=== PATIENT | male | born 1995 | race Caucasian/White ===

== ENCOUNTER 2019-03-18 19:56 | Emergency (ER) | payer BC ==
[~2019-03-18] VITALS: Ht 182.9 cm; Wt 93.4 kg
--- NOTE | 2019-03-18 20:19 | NUR ---
PT TAKEN BACK TO LOBBY
[2019-03-18 20:20] VITALS: BP 116/74
[2019-03-18] MEDS ORDERED: DEXAMETHASONE 10 MG/ML VIAL PO ONE (21:00)
--- NOTE | 2019-03-18 21:10 | NUR ---
23 Y/O MALE C/O FLU LIKE SX X 5 DAYS. LUNG SOUNDS CLEAR ALL THROUGHOUT. NO RESP DISTRESS NOTED. NO SOB. A & O X4. PRODUCTIVE COUGH PRESENT. RUNNY NOSE. TOOK TYLENOL AT 1400 AND COLD SX MED AT 1100 TODAY. VSS. NO N,V,D. NKA. NO PMH.
[2019-03-18 21:18] VITALS: BP 116/74
--- NOTE | 2019-03-18 21:18 | NUR ---
Patient discharged with v/s stable. Written and verbal after care instructions given and explained. Patient alert, oriented and verbalized understanding of instructions. Ambulatory with steady gait. All questions addressed prior to discharge. ID band removed. Patient advised to follow up with PMD. Rx of ALBUTEROL,PREDNISONE,IBUPROFEN given. Patient educated on indication of medication including possible reaction and side effects. Opportunity to ask questions provided and answered.
== END 2019-03-18 21:18 | disposition home or self-care (01) ==
LOC: MED 19:56
DX: J06.9 Acute upper respiratory infection, unspecified (principal)
CPT/HCPCS: 71045; 99283; J1100

== ENCOUNTER 2021-05-03 19:03 | Emergency (ER) | payer BC ==
[~2021-05-03] VITALS: Ht 182.9 cm; Wt 98.0 kg
[2021-05-03 19:07] VITALS: BP 146/74
--- NOTE | 2021-05-03 19:20 | NUR ---
DR GARNICA AT BEDSIDE
--- NOTE | 2021-05-03 19:25 | NUR ---
25 Y/O MALE C/O LEFT ARM NUMBNESS X1DAY. DENIES N/V. DENIES FEVER/CHILLS. PT STATES "SOMETIMES MY HAND GOES COLD" DENIES PMH NKA
[2021-05-03] MEDS ORDERED: diazePAM 5 MG TAB PO ONE (19:35)
[2021-05-03 19:54] LABS: BASOPHILS % (AUTO) 0.6 % (0.0-2.0); EOSINOPHILS # (AUTO) 0.5 K/uL (0-0.4); EOSINOPHILS % (AUTO) 8.1 % (0.0-4.0); HEMATOCRIT 43.4 % (36-52); HEMOGLOBIN 15.1 g/dL (12.0-18.0); LYMPHOCYTES # (AUTO) 1.7 K/uL (2.0-11.5); LYMPHOCYTES % (AUTO) 27.6 % (20.5-51.1); MEAN CORPUSCULAR HEMOGLOBIN 29 pg (27-31); MEAN CORPUSCULAR HGB CONC 35 g/dL (33-37); MEAN CORPUSCULAR VOLUME 83.9 fL (80-94); MONOCYTES # (AUTO) 0.4 K/uL (0.8-1.0); MONOCYTES % (AUTO) 7.1 % (1.7-9.3); NEUTROPHILS # (AUTO) 3.4 K/uL (1.8-7.7); NEUTROPHILS % (AUTO) 56.6 % (42.2-75.2); PLATELET COUNT (AUTO) 227 K/uL (140-450); RED BLOOD CELL COUNT(AUTO) 5.18 MIL/uL (4.20-6.10); RED CELL DISTRIBUTION WIDTH 13.4 % (11.6-13.7)
[2021-05-03 20:11] LABS: ANION GAP 13.6 (8-16); CARBON DIOXIDE 28.9 mmol/L (21-32); CREATININE 0.9 mg/dL (0.6-1.3); POTASSIUM 3.5 mmol/L (3.5-5.1)
[2021-05-03] MEDS ORDERED: DIAZ5TAB8 PO (20:34)
--- NOTE | 2021-05-03 20:42 | NUR ---
DR GARNICA AT BEDSIDE FOR RE-EXAM
[2021-05-03 20:45] VITALS: BP 146/74
--- NOTE | 2021-05-03 20:45 | NUR ---
Patient discharged with v/s stable. Written and verbal after care instructions given and explained. Patient alert, oriented and verbalized understanding of instructions. Ambulatory with steady gait. All questions addressed prior to discharge. ID band removed. Patient advised to follow up with PMD. Rx of VALIUM given. Patient educated on indication of medication including possible reaction and side effects. Opportunity to ask questions provided and answered.
== END 2021-05-03 20:45 | disposition home or self-care (01) ==
LOC: MED 19:03
DX: R20.2 Paresthesia of skin (principal); Z79.899 Other long term (current) drug therapy
CPT/HCPCS: 36415; 70450; 80048; 85025; 93005; 99285